=== PATIENT | female | born 1940 | race Caucasian/White ===

== ENCOUNTER 2021-05-03 18:54 | Emergency (ER) | payer OTHER ==
[~2021-05-03] VITALS: Ht 170.2 cm; Wt 65.8 kg
[2021-05-03] MEDS ORDERED: HYDROCODONE/ACETAMINOPHEN 5/325 MG TAB PO STA (19:20)
[2021-05-03 21:15] VITALS: BP 142/82
[2021-05-03] MEDS ORDERED: IBUP-2088 PO (21:34)
== END 2021-05-03 21:52 | disposition home or self-care (01) ==
LOC: EDH 18:54
DX: M54.2 Cervicalgia (principal); M54.9 Dorsalgia, unspecified; R51.9 Headache, unspecified; J44.9 Chronic obstructive pulmonary disease, unspecified; Z88.8 Allergy status to other drugs, medicaments and biological substances; V49.49XA Driver injured in collision with other motor vehicles in traffic accident, initial encounter; Y93.89 Activity, other specified; Y92.89 Other specified places as the place of occurrence of the external cause; Y99.8 Other external cause status
CPT/HCPCS: 71101; 72125

== ENCOUNTER 2022-07-24 05:08 | Emergency (ER) | payer OTHER ==
[~2022-07-24] VITALS: Ht 167.6 cm; Wt 62.1 kg
[~2022-07-24 05:08] MED LIST: AEC81 PO; ATOR40TA71 PO; FURO40TA5 PO; HYDR-4060 PO; PRAV40TA3 PO; TRAM100T40 PO; metoprolol er PO; salbutamol PO
[2022-07-24 05:58] LABS: BASOPHILS % (AUTO) 0.4 % (0.0-5.0); EOSINOPHILS % (AUTO) 0.9 % (0.0-8.0); HEMATOCRIT 32.2 % (36-48); LYMPHOCYTES % (AUTO) 13.3 % (21.0-51.0); MEAN CORPUSCULAR HEMOGLOBIN 31.5 pg (27.0-33.0); MEAN CORPUSCULAR HGB CONC 31.1 g/dL (32.0-36.0); MEAN CORPUSCULAR VOLUME 101.6 fL (79-99); MONOCYTES % (AUTO) 7.8 % (3.0-13.0); NEUTROPHILS % (AUTO) 77.3 % (40.0-77.0); PLATELET COUNT (AUTO) 300 K/uL (130-400); RED BLOOD CELL COUNT(AUTO) 3.17 MIL/uL (4.00-5.50); RED CELL DISTRIBUTION WIDTH 13.6 % (11.0-15.5); WHITE BLOOD COUNT (AUTO) 10.8 K/uL (4.8-10.8)
[2022-07-24 06:21] LABS: ALBUMIN 2.5 g/dL (3.5-5.0); CREATININE 1.3 mg/dL (0.5-1.5); POTASSIUM 4.9 mmol/L (3.5-5.1); TOTAL PROTEIN, SERUM 6.1 g/dL (6.0-8.3)
[2022-07-24 06:24] LABS: INR 0.93 (0.85-1.15); PROTHROMBIN TIME 10.1 SEC (9.6-11.6)
[2022-07-24 06:25] LABS: PARTIAL THROMBOPLASTIN TIME 31.6 SEC (26.3-35.5)
[2022-07-24] MEDS: CEFTRIAXONE 1G VIAL IVP ONE (06:37)
[2022-07-24] MEDS: SOLU-MEDROL 125MG VIAL IVP ONE (06:37)
[2022-07-24] MEDS: AZITHROMYCIN 500MG+NS 250ML IVPB SCH (06:37)
[2022-07-24] MEDS ORDERED: PRED20TA3 PO (06:46)
[2022-07-24] MEDS ORDERED: AZIT500T2 PO (06:46)
[2022-07-24] MEDS: ALBUTEROL 0.083% 2.5 MG/3 ML INH IH ONE (06:48)
[2022-07-24] MEDS: IPRATROPIUM/ALBUTEROL SULFATE 3 ML SOLUTION IH ONE (06:48)
[2022-07-24] MEDS: IPRATROPIUM 0.5 MG/2.5 ML INH IH ONE (06:48)
[2022-07-24 07:12] VITALS: BP 169/79
== END 2022-07-24 12:47 | disposition home or self-care (01) ==
LOC: EDH 05:08
DX: J44.1 Chronic obstructive pulmonary disease with (acute) exacerbation (principal); E78.00 Pure hypercholesterolemia, unspecified; I11.0 Hypertensive heart disease with heart failure; I50.9 Heart failure, unspecified; F17.210 Nicotine dependence, cigarettes, uncomplicated; Z79.52 Long term (current) use of systemic steroids; Z79.82 Long term (current) use of aspirin; Z79.899 Other long term (current) drug therapy; Z90.49 Acquired absence of other specified parts of digestive tract
CPT/HCPCS: 99284; 96365; 71045; 96375; 96366; 82550; 84484; 80053; 85025; 85610; 85730; 87040 ×2; 83605; 36415; 93005 ×2; 94640; J2930; J0696; J0456